=== PATIENT | male | born 1975 | race Caucasian/White ===

== ENCOUNTER 2016-11-03 12:31 | Observation (INO) | payer OTHER ==
--- NOTE | ~2016-11-03 | HP ---
History And Physical [facility] [id number] [place]. [address] NAME: KEAGAN SESAY : 71 STATUS : DIS Sekou PAT#: [id number] AGE: 41 ADM/REG DATE : 11/03/16 MR#: [id number] REPORT SERV DATE: 11/04/16 DICTATED BY: PILAR PEREIRA DATE: 11/03/16 REPORT STATUS : Draft TRANSCRIBED BY: MODL DATE: 11/03/16 DATE OF ADMISSION: 11/03/2016 ADMISSION H AND P/DISCHARGE SUMMARY REASON FOR ADMISSION: Tremor. HISTORY OF PRESENT ILLNESS: Mr. Sesay is a 41-year-old male previously healthy who presents to the emergency department today with tremors. The patient says over the last 3 weeks, having increasing tremors that comes and goes particularly with doing activity such as when he wanted to do pushup for instances, his arms will start to tremble. He also had issues with chills without fever like his whole body was shaking. The patient denies any pain or shortness of breath. He has had episodic left-sided numbness which is not present today but no real pain. He has had a great deal of anxiety about this, it has affected his job. The patient denies any other health problems. Denies any history of endocrine or rheumatologic disease. REVIEW OF SYSTEMS: The remainder of review of systems are negative. PAST MEDICAL HISTORY: As mentioned above. MEDICATIONS: He takes no medications. FAMILY HISTORY: Has no significant family history of MS or anything else. SOCIAL HISTORY: The patient denies tobacco, alcohol, or drugs. He is . PHYSICAL EXAMINATION: VITAL SIGNS: On presentation blood pressure 120/76, pulse of 50, respirations 18, afebrile, oxygen saturation 99%. GENERAL EXAM: Awake, alert, and oriented x3. No apparent distress. HEENT: Pupils are equal and reactive to light. Extraocular movements are intact. No cranial nerve deficits. Moist mucous membranes. Normal oropharynx. He had normal visual bhagat although nystagmus was present upon lateral gaze to the left but no diplopia or vertigo was identified during leftward gaze. NECK: Revealed no jugular distention, carotid bruits, lymphadenopathy, or goiter. He had negative Spurling sign. CARDIAC EXAM: Regular rate and rhythm. No murmurs, gallops, or rubs. LUNGS: Clear to auscultation bilaterally. Good excursion. ABDOMEN: Nondistended and nontender. Bowel sounds normoactive. EXTREMITIES: No cyanosis, clubbing, or edema. Good pulses and capillary refill. Normal motor tone. He had 5/5 strength in all four extremities. Normal sensory function x4. Normal [id number] test. Normal heel to colón and normal deep tender reflexes throughout. SKIN: Warm and dry. PSYCHIATRIC: He is appropriate. History And Physical [address] [place]. [address] NAME: KEAGAN SESAY : 71 STATUS : DIS Sekou PAT#: [id number] AGE: 41 ADM/REG DATE : 11/03/16 MR#: [id number] REPORT SERV DATE: 11/04/16 DICTATED BY: PILAR PEREIRA DATE: 11/03/16 REPORT STATUS : Draft TRANSCRIBED BY: MARYLOU DATE: 11/03/16 LABORATORY EVALUATION: Sodium is 137, potassium 4.3, chloride 101, bicarb 31, BUN 12, creatinine 0.9, glucose 95. White count 5000, H and H 16 and 46, platelets 241. Chest x- ray is negative. CT of the brain was done which showed a concern for Chiari malformation. An MRI was ordered to rule out incipient herniation, actually Chiari malformation was not identified. There were no abnormalities seen at all in the MRI of the brain or the C-spine. ASSESSMENT AND PLAN: 1. Tremor with episodic numbness. Differential diagnosis for this was most concerning for cervical spine disease, however, the lack of a stenosis was reassuring. This is not suggestive of stroke but certainly autoimmune or degenerative neurological diseases cannot be excluded based on the MRI exam, however, the physical exam was reassuring with no evidence of parkinsonism, multiple sclerosis or neuromyelitis optica although these conditions could till be in the very early stages and cannot be excluded based on the exam such as done. An outpatient workup with primary care provider should, however, be done. Laboratory assessment particularly in light of endocrine or rheumatologic disease considerations as an outpatient, may consider lumbar puncture or electromyogram or neurological followup. However, the most likely issue and I tried to be reassuring about this is that mild issue such as essential tremor can generate anxiety which can exacerbate tremor, worsen sleep and increase the use of caffeine which in turn worsens tremor again. I instructed him to reduce the caffeine use, Ativan was given prescription p.r.n. for anxiety and an outpatient followup with a new primary care provider whose appointment already made with Dr. Luis Bobby. He will follow up with Dr. Luis Bobby as an outpatient. BEBETO/MARYLOU Pilar Pereira M.D. / [id number] CC: Mary Torres M.D.
[2016-11-03 11:01] LABS: BASOPHILS 0.6 %; BASOPHILS ABSOLUTE 0.03 10/3/uL (0.0-0.16); EOSINOPHILS 2.2 %; EOSINOPHILS ABSOLUTE 0.11 10/3/uL (0.0-0.53); ER CBC TAT 0 Hrs 11 Mins; HEMATOCRIT 46.1 % (40.0-51.0); HEMOGLOBIN 16.1 g/dL (13.6-17.8); LYMPHOCYTES 23.3 %; LYMPHOCYTES ABSOLUTE 1.17 10/3/uL (0.67-4.30); MEAN CORPUS HGB CONC 34.9 g/dL (32.0-36.0); MEAN CORPUSCULAR HEMOGLOB 32.3 pg (26.0-34.0); MEAN CORPUSCULAR VOLUME 92.6 fL (80-100); MEAN PLATELET VOLUME 9.2 fL (9.2-13.0); MONOCYTES 10.8 %; MONOCYTES ABSOLUTE 0.54 10/3/uL (0.21-1.20); NEUTROPHILS 63.1 %; NEUTROPHILS ABSOLUTE 3.17 10/3/uL (2.02-8.40); PLATELET COUNT 244 10/3/uL (150-400); RED CELL COUNT 4.98 10/6/uL (4.7-6.1)
[2016-11-03 11:03] LABS: MANUAL DIFF NO %
[2016-11-03 11:09] LABS: PARTIAL THROMBO TIME 27.6 SEC (22.5-37.2); PROTIME (NOT ORD) 13.1 SEC (12.0-14.5)
[2016-11-03 11:09] LABS: ASCORBIC ACID (UR NOT ORDER) NEG (NEG); BILIRUBIN, URINE NEGATIVE (NEG); ER URINALYSIS TAT 0 Hrs 07 Mins; KETONE, URINE NEGATIVE (NEG); LEUKOCYTE ESTERASE(NOT OR NEG (NEG); NITRITE (URINE) NEG (NEG); WBC (NOT ORDERED) (RFLEX) < 1 (0-5)
[2016-11-03 11:22] LABS: A/G RATIO 1.4 (0.7-1.9); ALBUMIN 4.1 G/DL (3.5-5.0); ALKALINE PHOSPHATASE 85 U/L (45-117); BUN (BLOOD UREA NITROGEN) 12 MG/DL (6-23); CALCIUM, SERUM 9.2 MG/DL (8.5-10.4); CHLORIDE, SERUM 106 MMOL/L (96-112); CO2 (CARBON DIOXIDE) 31 MMOL/L (24-34); CREATININE 0.91 MG/DL (0.70-1.30); GFR AFRICAN AMERICAN 119 ML/MIN (>=60); GFR NON AFRICAN AMERICAN 103 ML/MIN (>=60); GLUCOSE, SERUM 95 MG/DL (60-99); POTASSIUM, SERUM 4.3 MMOL/L (3.5-5.3); SGOT(AST) 15 U/L (5-40); SGPT(ALT) 26 U/L (5-65); SODIUM, SERUM 137 MMOL/L (135-148); TOTAL BILIRUBIN 0.7 MG/DL (0-1.2); TOTAL PROTEIN 7.1 G/DL (6.0-8.5); TROPONIN I <0.02 NG/ML (<0.05)
[2016-11-03] MEDS ORDERED: *DENIES (14:04)
[2016-11-03] MEDS ORDERED: ATV.5 PO (17:37)
== END 2016-11-03 17:50 | disposition home or self-care (01) ==
LOC: ER 12:31 → CDU1 12:38 → CDU2 13:57
PROVIDERS: Physician Assistant
DX: R25.1 Tremor, unspecified (principal); R20.0 Anesthesia of skin
CPT/HCPCS: 70450; 70553; 71010; 72156; 80053; 81001; 82962; 84443; 84484; 85025; 85610; 85730; 93005; 99285; A9577; G0378